=== PATIENT | female | born 1965 | race Caucasian/White ===

== ENCOUNTER → 2020-02-02 | Outpatient (CLI) | payer BC ==
--- NOTE | 2020-02-02 13:28 | US ---
EXAMINATION TYPE: US st tissue head/neck DATE OF EXAM: 02/02/2020 COMPARISON: 06/21/2015 CLINICAL HISTORY: 54-year-old female R59.0 Lymphadenopathy. History of palpable areas felt near parot id gland behind left ear. Technique: Targeted ultrasound examination behind the left ear at the patient's palpable sites. FINDINGS: Accounting Consultant notes: 2 anechoic areas noted at palpable that we have seen previously, no internal solid components seen today, appears more cystic in nature. No vascularity seen. These measure 7 x 7 x 4 m m and 5 x 3 x 4 mm. IMPRESSION: 2 possible cysts behind the left ear at the palpable site measuring 7 mm and 5 mm. On the 2014 exam, one such lesion was seen measuring roughly 5 mm but there seemed to be some internal vascularity at t hat time. Cysts or suppurative lymph nodes are possible. Consider an excisional biopsy to further amparo luate especially if any enlargement or suspicious features are noted clinically.
== END | disposition home or self-care (01) ==
LOC: RADUSWWP 12:23
PROVIDERS: ATTEND Family Medicine
DX: R59.0 Localized enlarged lymph nodes (principal)
CPT/HCPCS: 76536

== ENCOUNTER → 2020-02-20 | Outpatient (CLI) | payer BC ==
[2020-02-20 08:14] LABS: African American GFR (CKD) >90 (>60 ml/min/1.73 sqM); Blood Urea Nitrogen 12 mg/dL (7-17); Non-African American GFR(CKD) 83 (>60 ml/min/1.73 sqM)
--- NOTE | 2020-02-20 08:38 | CT ---
EXAMINATION TYPE: CT soft tissue neck w con DATE OF EXAM: 02/20/2020 HISTORY: Localized swelling mass lump neck COMPARISON: Neck ultrasound February 02, 2020 and older studies back through 2014. CT DLP: 481 mGycm. Automated Exposure Control for Dose Reduction was Utilized. TECHNIQUE: CT scan of the neck is performed with IV Contrast, patient injected with 100 ml mL of Iso gregorio 300, axial images are obtained, coronal and sagittal reformatted images are reviewed. FINDINGS: Airway: No gross abnormality seen. Parotid/submandibular glands: Slight asymmetric prominence to right submandibular gland without suspi cious mass or surrounding inflammatory change, likely normal variant. Metallic BB placed at level of left parotid gland axial image 18 along the inferior posterior aspect. Correlating with recent ultrasound there is oval 6 x 5 mm hyperdense lesion along superficial margin just anterior and superior to the BB abutting the skin surface axial image 15 and smaller 5 x 4 mm r ound hyperdense lesion inferior to the left parotid gland axial image 24. There is patent draining ex ternal vein near this level. There are additional scattered subcentimeter lymph nodes throughout the left neck. There are subcentimeter lymph nodes scattered throughout the right neck including submandi bular region but slightly more prominent in the left neck versus right neck. No definitive greater th an 1 cm neck adenopathy. Parapharyngeal fat spaces are maintained bilaterally. Carotid/Vascular Structures: No significant plaque or stenosis at carotid bulb level bilaterally. Beatriz tebral arteries patent to basilar junction. Incidental note of dominant right vertebral artery. Osseous Structures: Slight scoliotic curvature on coronal images . Axial images show multilevel uncov ertebral facet degenerative changes contributing to multilevel neural foraminal narrowing greatest le ft C2-C3, right C4-C5, and bilateral C5-C6 levels. Other: None. IMPRESSION: Area of concern shows persistent subcentimeter lesions, I favor reactive but benign subce ntimeter adenopathy given overall no significant enlargement since 2015 study. No obvious mass or gre ater than 1 cm neck adenopathy.
== END | disposition home or self-care (01) ==
LOC: RADCTMAIN 07:03
PROVIDERS: ATTEND Family Medicine
DX: R22.1 Localized swelling, mass and lump, neck (principal)
CPT/HCPCS: 82565; 84520; 70491; 36415; Q9967

== ENCOUNTER → 2020-04-26 | Day surgery (SDC) | payer BC ==
[2020-04-24 12:59] VITALS: BMI 34.6
[~2020-04-26] MED LIST: LACTATED RINGERS 1,000 ML IV SCH; LIDOCAINE 1% (10MG/ML) FOR IV START INTRADERMA ONE; LIDOCAINE 1% INJ 10MG/ML (20 ML MDV) ONE; PROPOFOL 10 MG/ML 20 ML VIAL IV ONE
[2020-04-26 10:04] VITALS: TEMP 96.1
[2020-04-26 10:37] VITALS: RESP 17
[2020-04-26 10:55] VITALS: BP 116/53; PULSE 66
--- NOTE | 2020-04-26 11:29 | P.PCN ---
Date of Procedure: 04/26/20 Procedure(s) Performed: BRIEF HISTORY: Patient is a 54-year-old pleasant white female scheduled for an elective colonoscopy as a part of evaluation of prior history of colon polyps. Last colonoscopy was 5 years ago and was noted to have polyps. PROCEDURE PERFORMED: Colonoscopy. PREOPERATIVE DIAGNOSIS: History of colon polyps. IV sedation per Anesthesia. PROCEDURE: After informed consent was obtained, the patient, was brought into the endoscopy unit. IV sedation was administered by Anesthesia under continuous monitoring. Digital rectal examination was normal. Initially the Olympus CF-160 flexible video colonoscope was then inserted in the rectum, gradually advanced into the cecum without any difficulty. Careful examination was performed as the scope was gradually being withdrawn. Ileocecal valve and the appendiceal orifice were visualized and appeared normal. Prep was excellent. Mucosa of the cecum, ascending colon, transverse colon, descending colon, sigmoid colon, and rectum appeared normal. Scattered sigmoid diverticulosis. Retroflexion was performed in the rectum and no lesions were seen. The patient tolerated the procedure well. IMPRESSION: Normal-appearing colon from rectum to cecum with no evidence of colorectal . Scattered sigmoid diverticulosis. RECOMMENDATIONS: Findings of this examination were discussed with the patient as well as her family. She was advised to have a repeat surveillance colonoscopy in 5 years from now because of the prior history of colon polyps.
== END ==
LOC: ORWHC2ENDO 09:27
PROVIDERS: ATTEND Internal Medicine Gastroenterology
DX: Z12.11 Encounter for screening for malignant neoplasm of colon (principal); K57.30 Diverticulosis of large intestine without perforation or abscess without bleeding; E07.9 Disorder of thyroid, unspecified; K21.9 Gastro-esophageal reflux disease without esophagitis; Z86.010 Personal history of colon polyps; Z88.2 Allergy status to sulfonamides; Z79.890 Hormone replacement therapy; Z91.89 Other specified personal risk factors, not elsewhere classified
CPT/HCPCS: 81025; G0105; J2001; J2704; 45378

== ENCOUNTER → 2020-10-29 | Outpatient (CLI) | payer BC ==
--- NOTE | 2020-10-29 16:04 | US ---
EXAMINATION TYPE: US st tissue head/neck DATE OF EXAM: 10/29/2020 COMPARISON: 02/02/[address] 02/20/2020 CLINICAL HISTORY: 55-year-old female E04.1 nodule. Palpable lump behind left ear x many years Technique: Targeted ultrasound examination at the site of patient's palpable concern behind left ear. FINDINGS: Rn Cardiac Cath notes:In area of pt's palpable left parotid shows two very hypoechoic areas as visualiz ed on prior exams measuring 7mm and 4mm respectively IMPRESSION: 2 very hypoechoic areas at the patient's palpable site at the left parotid gland measuring 7 mm and 4 mm, unchanged from 02/02/2020. The patient's CT showed that these probably represent parotid space ly mph nodes. Stability suggests a benign etiology. They can continue to be followed clinically and reim aged if any growth is noted.
== END | disposition home or self-care (01) ==
LOC: RADUSWWP 13:53
PROVIDERS: ATTEND Otolaryngology
DX: R22.1 Localized swelling, mass and lump, neck (principal); Z88.2 Allergy status to sulfonamides
CPT/HCPCS: 76536

== ENCOUNTER → 2021-04-18 | Outpatient (CLI) | payer BC ==
--- NOTE | 2021-04-18 13:33 | US ---
EXAMINATION TYPE: US thyroid st tissue head/neck DATE OF EXAM: 04/18/2021 COMPARISON: 10/29/2020 CLINICAL HISTORY: K11.8 L PAROTID MASS. left parotid mass. palpable lump behind left ear for 5 years within patient's area of palpable, left parotid area, 2 hypoechoic areas noted as on prior exam = 0.6 x 0.3 x 0.6cm and 0.3 x 0.3 x 0.4cm . IMPRESSION: There is persistence of 2 small hypoechoic nodules which are stable in size relative to the prior exams could possibly represent small lymph nodes. Other etiologies not excluded correlate c linically.
== END | disposition home or self-care (01) ==
LOC: RADUSWWP 12:34
PROVIDERS: ATTEND Otolaryngology
DX: R22.1 Localized swelling, mass and lump, neck (principal)
CPT/HCPCS: 76536

== ENCOUNTER → 2022-04-14 | Outpatient (CLI) | payer BC ==
--- NOTE | 2022-04-14 22:15 | US ---
EXAMINATION TYPE: US thyroid st tissue head/neck DATE OF EXAM: 04/14/2022 COMPARISON: 04/18/2021 ultrasound, 02/20/2020 CT. CLINICAL HISTORY: K11.8 parotid mass. Left parotid mass In the palpable area of left parotid, two hypoechoic vascular masses could represent lymph nodes with normal fatty hilum which are similar to prior's. 1: 0.46 x 0.31 x 0.49cm (Prior 0.6 x 0.3 x 0.6cm) 2: 0.3 x 0.2 x 0.3cm (Prior 0.3 x 0.3 x 0.4cm) IMPRESSION: Redemonstration of multiple hypoechoic lesions are favored represent subcentimeter lymph nodes. No si gnificantly changed from 04/18/[address] findings and 05/31/2020.
== END | disposition home or self-care (01) ==
LOC: RADUSWWP 15:41
PROVIDERS: ATTEND Otolaryngology
DX: K11.8 Other diseases of salivary glands (principal)
CPT/HCPCS: 76536